=== PATIENT | female | born 1955 ===

== ENCOUNTER → 2022-06-17 06:00 | Outpatient (CLI) | payer OTHER ==
[~2022-06-17 06:00] MED LIST: ACTOS15 MG PO; METFORMIN HCL1000 M1 PO; PROZAC10 MG PO; SYNTHROID50 MCG PO; ZESTRIL5 MG PO; [UNRECOGNIZED DRUG - OTHER] PO
== END | disposition home or self-care (01) ==
LOC: LAB 06:00 → ADM 08:45 → EDSTATUS 06-21 08:45 → CIR.AMB 06-21 08:45
PROVIDERS: ATTEND Obstetrics & Gynecology Gynecology
DX: Z20.828 Contact with and (suspected) exposure to other viral communicable diseases (principal); N39.41 Urge incontinence; D64.9 Anemia, unspecified; D68.9 Coagulation defect, unspecified